=== PATIENT | male | born 1995 | race Caucasian/White ===

== ENCOUNTER 2025-03-30 17:00 | Emergency (ER) | payer OTHER, SELFPAY ==
[2025-03-30 17:12] VITALS: BP 129/63; PULSE 78; RESP 18; TEMP 36.8; O2SAT 100
--- NOTE | 2025-03-30 17:23 | ED_ITS ---
HPI - General Adult General Chief complaint: Dental/Oral Stated complaint: dental abcess Source: patient Mode of arrival: ambulatory Limitations: no limitations History of Present Illness HPI narrative: Patient presents for evaluation of left lower dental pain. Symptom onset yesterday. Pain is constant, throbbing, 8/10 severity. He took Tylenol for symptoms. He thinks he has a infection. No fever, trismus, or problems handling secretions. He does vape. Related Data Allergies Allergy/AdvReac Type Severity Reaction Status Date / Time No Known Allergies Allergy Mild Verified 03/30/25 17:11 Review of Systems Review of Systems: CONSTITUTIONAL: Denies fever, chills, or sweats. EYES: Denies visual changes, redness, or discharge. ENT: Reports left lower dental pain. Denies rhinorrhea, congestion, sore throat, or otalgia. CARDIOVASCULAR: Denies chest pain, palpitations, or edema. RESPIRATORY: Denies cough or dyspnea. GASTROINTESTINAL: Denies abdominal pain, nausea, vomiting, or diarrhea. GENITOURINARY: Denies dysuria or hematuria. SKIN: Denies rash or itching. MUSCULOSKELETAL: Denies back pain, joint pain, or myalgia. NEUROLOGIC: Denies headache, numbness, dizziness, or weakness. PSYCHIATRIC: Denies anxiety or depression. [facility] Past Medical History Medical History No pertinent past medical history Surgical History Surgical History No pertinent past surgical history Family History Family History Mother Family history non-contributory Social History Social History Smoking status: Current every day smoker Tobacco type: e-cigarettes/vaping Gender identity (if verbalized by the patient): Male Spiritual care concerns: No Exam Narrative: GENERAL: Well-appearing, well-nourished, and in no acute distress. HEAD: Normocephalic, atraumatic. EYES: PERRLA and EOMI. ENT: Nares clear, no rhinorrhea or epistaxis. Tooth #20 is fractured. There is no palpable area of fluctuance in the gumline however there is tenderness present adjacent to tooth #20. Mucous membranes moist. Oropharynx without tonsillar hypertrophy exudate or other lesions. Bilateral TMs pearly talley nonbulging NECK: Supple. No adenopathy or masses. No carotid bruits or JVD CHEST: Clear to auscultation. No respiratory distress. No wheezes rales or rhonchi HEART: Regular rate and rhythm. No murmur heard. Normal peripheral pulses. ABDOMEN: Soft, nontender, nondistended, normal active bowel sounds. EXTREMITIES: Normal range of motion. No edema. SKIN: Warm, dry, no rash. NEURO: No focal deficits. Alert and oriented x3. PSYCH: Normal mood and affect. Course Course Emergency Course: This is a 30-year-old male who presented for evaluation of left lower dental pain. He has a dental fracture in that area. Reports a history of dental infection and states that his current symptoms seem similar to that. I do not appreciate a drainable fluid collection. Will discharge with penicillin and ibuprofen. Advised on smoking cessation. Follow up with primary provider. Go to the ER for worsening symptoms. Patient in agreement with plan of care. Level of Care: Express Care Visit Vital Signs Vital signs: Vital Signs Temperature 36.8 C 03/30/25 17:12 Pulse Rate 78 03/30/25 17:12 Respiratory Rate 18 03/30/25 17:12 Blood Pressure 129/63 03/30/25 17:12 Pulse Oximetry 100 03/30/25 17:12 Oxygen Delivery Room Air 03/30/25 17:12 Temperature 36.8 C 03/30/25 17:12 Pulse Rate 78 03/30/25 17:12 Respiratory Rate 18 03/30/25 17:12 Blood Pressure 129/63 03/30/25 17:12 Pulse Oximetry 100 03/30/25 17:12 Oxygen Delivery Room Air 03/30/25 17:12 Medical Decision Making Vital Signs Vital Signs: Vital Signs Temperature 36.8 C 03/30/25 17:12 Pulse Rate 78 03/30/25 17:12 Respiratory Rate 18 03/30/25 17:12 Blood Pressure 129/63 03/30/25 17:12 Pulse Oximetry 100 03/30/25 17:12 Oxygen Delivery Room Air 03/30/25 17:12 Temperature 36.8 C 03/30/25 17:12 Pulse Rate 78 03/30/25 17:12 Respiratory Rate 18 03/30/25 17:12 Blood Pressure 129/63 03/30/25 17:12 Pulse Oximetry 100 03/30/25 17:12 Oxygen Delivery Room Air 03/30/25 17:12 Discharge Plan Discharge Clinical Impression: Fracture of tooth Patient Disposition: Home Condition: Stable Instructions: Antibiotic Form, Toothache (ED) Patient Language: Kiswahili Prescriptions: New penicillin V potassium 500 mg tablet 500 mg PO Q6H 10 Days Qty: 40 0RF ibuprofen 800 mg tablet 800 mg PO TID PRN (Reason: pain) Qty: 30 0RF Follow-up/Referrals: Angel Pradhan MD [Physician, Family Practice] Time of Disposition: 17:22
== END 2025-03-30 17:29 | disposition home or self-care (01) ==
PROVIDERS: Emergency Provider Nurse Practitioner
DX: S02.5XXA Fracture of tooth (traumatic), initial encounter for closed fracture (principal); F17.290 Nicotine dependence, other tobacco product, uncomplicated; X58.XXXA Exposure to other specified factors, initial encounter
CPT/HCPCS: 99203; G0463

== ENCOUNTER 2025-05-19 17:37 | Emergency (ER) | payer OTHER, SELFPAY ==
[2025-05-19 17:44] VITALS: BP 135/77; PULSE 66; RESP 20; TEMP 37.1; O2SAT 100
--- NOTE | 2025-05-19 17:57 | ED_ITS ---
HPI - Dental/Oral General Chief complaint: Dental/Oral Stated complaint: Tooth Pain Time Seen by Provider: 05/19/25 17:57 Source: patient Mode of arrival: ambulatory Limitations: no limitations History of Present Illness HPI Narrative: 30-year-old male presents with concern of for left lower dental pain for 2 days. Reports similar instances of infection in the past. Reports left jaw swelling. Denies fever problems swallowing MD Complaint: tooth pain Related Data Allergies Allergy/AdvReac Type Severity Reaction Status Date / Time No Known Allergies Allergy Mild Verified 05/19/25 17:44 Review of Systems Review of Systems: CONSTITUTIONAL: Denies malaise, chills, sweats, or fever. EYES: Denies visual changes ENT: Denies rhinorrhea, congestion, sinus pain, otalgia or sore throat. Reports left lower dental pain CARDIOVASCULAR: Denies chest pain, palpitations RESPIRATORY: Denies cough or dyspnea. SKIN: Denies rash or itching. MUSCULOSKELETAL: Denies myalgia. NEUROLOGIC: Denies numbness, weakness, or headache. All systems reviewed & are unremarkable except as noted in HPI and below PMFSH Past Medical History Medical History No pertinent past medical history Surgical History Surgical History No pertinent past surgical history Family History Family History Mother Family history non-contributory Social History Social History (Updated 03/30/25 @ 17:26 by Derik Flannery, [facility], [facility]) Smoking status: Current every day smoker Tobacco type: e-cigarettes/vaping Gender identity (if verbalized by the patient): Male Spiritual care concerns: No Comments At time of signature, agree with nursing past medical, surgical, social and family history. There is no relevant family history pertinent to the presenting complaint Exam Narrative: GENERAL: Well-appearing, well-nourished, and in no acute distress. HEAD: Normocephalic, atraumatic. EYES: PERRLA, sclera clear ENT: Nares clear, turbinates pink, no rhinorrhea or epistaxis. Mucous membranes moist. TM pearly talley with sharp light reflex bilaterally; no tragal tenderness. Oropharynx without erythema or lesions. Tonsils not enlarged and without exudate. Missing teeth, broken teeth, caries, mild left jaw swelling NECK: Supple. No lymphadenopathy. CHEST: No respiratory distress. Speaks in full sentences. HEART: Regular rate and rhythm. SKIN: Warm, dry, no visible rash. NEURO: Alert and oriented x3. PSYCH: Normal mood and affect Course Course Emergency Course: Patient is aware of diagnosis, understands and agrees to treatment plan. Anticipatory guidance given. Patient agrees to follow-up as directed and is aware of reasons to seek care at the emergency department. Portions of this record may have been created with voice recognition software Level of Care: [facility] Visit Vital Signs Vital signs: Vital Signs Temperature 98.8 F 05/19/25 17:44 Pulse Rate 66 05/19/25 17:44 Respiratory Rate 20 05/19/25 17:44 Blood Pressure 135/77 05/19/25 17:44 Pulse Oximetry 100 05/19/25 17:44 Oxygen Delivery Room Air 05/19/25 17:44 Temperature 98.8 F 05/19/25 17:44 Pulse Rate 66 05/19/25 17:44 Respiratory Rate 20 05/19/25 17:44 Blood Pressure 135/77 05/19/25 17:44 Pulse Oximetry 100 05/19/25 17:44 Oxygen Delivery Room Air 05/19/25 17:44 Reviewed. MDM - Dental/Oral MDM Narrative Medical decision making narrative: I evaluated [facility] in the [facility]. History is obtained from patient who is an independent historian and physical exam was performed.? Available medical records were reviewed. ? Exam findings and relevant testing show no acute concerns or changes; patient is non-toxic appearing and is in no distress. Patients pain and complaint coupled with physical findings are consistant with dentalgia. There are no focal signs of space occupying lesions that are compromising to the airway; no dysphagia, odynophagia, dysphonia, or dyspnea. No uvular deviation or soft palate edema. Patient is non-toxic appearing. The floor of the mouth is soft with no signs of Vito's Angina; no induration below mandible, no neck pain. Patient is without trismus or drooling and able to swallow secretions. Patient is felt appropriate for discharge home with dental follow up. ? Differential diagnosis and treatment plan were discussed with the patient. Patient agrees with discussion and after shared medical decision making agrees with plan of care. All questions were answered to the patient's satisfaction. Patient is appropriate for outpatient treatment and follow-up. Differential Diagnosis Differential diagnosis: Likely gingival abscess, dental caries, toothache, dental abscess, fracture of tooth and aphthous ulcer Critical Care Time Critical Care Time Critical Care Time: No Discharge Plan Discharge Clinical Impression: Dental abscess Patient Disposition: Home Condition: Stable Instructions: Dental Abscess (ED) Additional Instructions: Take antibiotic as directed Avoid temperature extremes May apply heat or ice to the face Gentle brushing and flossing Take 2 extra strength Tylenol, 4 ibuprofen, 80 mg of caffeine at same time. You can do this every 6 hours. Do not do this for more than 2 - 3 days. You can substitute 25 mg Benadryl at nighttime for caffeine to help you sleep. Do this for no more than 3 days. Follow-up with the dentist as soon as possible - see the list provided Patient Language: Spanish Prescriptions: New amoxicillin-pot clavulanate 875-125 mg tablet 1 tablet PO Q12H 10 Days Qty: 20 0RF Follow-up/Referrals: PHYSICIAN,HOME SERVICE DIRECTOR [Primary Care Provider, Internal Medicine] Time of Disposition: 18:01
== END 2025-05-19 18:06 | disposition home or self-care (01) ==
PROVIDERS: Emergency Provider Nurse Practitioner
DX: K04.7 Periapical abscess without sinus (principal); F17.290 Nicotine dependence, other tobacco product, uncomplicated
CPT/HCPCS: 99213; G0463

== ENCOUNTER 2025-06-21 16:32 | Emergency (ER) | payer OTHER, SELFPAY ==
--- OUTSIDE RECORDS SUMMARY | 2025-06-21 16:33 | XMS_ITS | Clinical Summary ---
Author Organization [facility] Address [address] [place] [address] Phone Care Team Providers Care Microsoft Exchange Architect Name Role Phone Manoj Bey MD Primary Care Provider [phone] Allergies No known active allergies Medications No known medications Immunizations Immunization Administration Dates Next Due Covid-19, Mrna, Lnp-s, Pf, 3 0 Mcg/0.3 Ml Dose (Skip Hop) 06/23/2021 DT Vaccine 09/21/1997, 7,1996,04/24 DTAP VACCINE 11/08/2000 Hepatitis A Vaccine, Pediatric/adolescent, 2 Dose Schedule 03/06/2010,01/17/2000,07/04/1999 Hepatitis B Vaccine, Pediatric/adolescent 1996,1996,1996 Hib Vaccine,unspecified Formulation 10/1997,1996,1996,04/24 Influenza Vaccine, Quadrivalent, PF 05/08/2013 MMR Vaccine 11/08/2000,06/28/1997 Meningococcal Vaccine 03/06/2010 OPV 11/08/2000, 8,1996,07/14,1996 TDAP Vaccine 03/06/2010 Varicella Vaccine Live 03/06/2010,02/23/1997 Family History Medical History Relation Name Comments No Known Problems Brother Cancer Father Prostate Cancer Father No Known Problems Maternal Grandfather No Known Problems Maternal Grandmother No Known Problems Mother Cancer Paternal Grandfather No Known Problems Paternal Grandmother Relation Name Status Comments Brother Alive Father Maternal Grandfather Alive Maternal Grandmother Alive Mother Alive Paternal Grandfather Paternal Grandmother Social History Tobacco Use Types Packs/Day Years Used Date Smoking Tobacco: Former Cigarettes 8 2 013 - 2020 Smokeless Tobacco: Never Tobacco Cessation:Counseling Given: No Alcohol Use Standard Drinks/Week Comments Not Currently 0 (1 standard drink = 0.6 oz pur e alcohol) PHQ-2 Answer Date Recorded Total Score - Questions 1-9 14 02/22 Sexually Active Control Partners Comments Yes Female Sex and Gender Information Value Date Recorded Sex Assigned at Not on file Legal Sex Male 3:03 PM CDT Gender Identity Not on file Sexual Orientation Not on file Last Filed Vital Signs Vital Sign Reading Time Taken Comments Blood Pressure 118/62 03/11/2023 2:15 PM CDT Pulse 76 03/11/2023 2:15 PM CDT Temperature 36.6 C (97.9 F) 03/11/2023 2:15 PM CDT Respiratory Rate 16 03/11/2023 2:15 PM CDT Oxygen Saturation 98% 03/11/2023 2:15 PM CDT Inhaled Oxygen Concentration - - Weight 85.5 kg (188 lb 8 oz) 03/11/2023 2:15 PM CDT Height 193 cm (6' 4) 03/11/2023 2:15 PM CDT Body Mass Index 22.94 03/11/2023 2:15 PM CDT Plan of Treatment Health Maintenance Due Date Last Done Comments DTaP/Tdap/Td Immunization (7 - Td or Tdap) 03/06/2020 03/06/2010, 11/08/2000, 09/21/1997, Additional history exists Human Papillomavirus (HPV) Immunization (1 - 3-dose SCDM series) 02/21/2023 Influenza Immunization (#1) 2025 05/08/2013 SARS-COV-2 Immunization ( season) 2025 06/23/2021 Respiratory Syncytial Virus (RSV) Immunization (Adult) (1 - 1-dose 75+ series) 02/21/2071 Hepatitis B Immunization Completed 997, 1996, 1996 Meningococcal Immunization (ACWY) Aged Out 03/06/2010 No longer eligible based on patient's age to complete this topic Hepatitis C Virus (HCV) Screening Completed 03/11/2023 Pneumococcal Immunization Combined Aged Out No longer eligible based on patient's age to complete this topic Rotavirus Immunization Aged Out No lo nger eligible based on patient's age to complete this topic Procedures Procedure Name Priority Date/Time Associated Diagnosis Comments HEPATITIS C ANTIBODY Routine 03/11/2023 2:45 PM CDT Need for hepatitis C screening test from Last 3 Months or Most Recently Relevant to Health Maintenance Results * HEPATITIS C ANTIBODY (03/11/2023 2:45 PM CDT) hepatitis C antibody 0.37 <1 S/[facility] [id number] 03/12/2023 12:42 AM CDT [facility] Comment: Signal/Cutoff ratio < 0.79 is Nondetected Signal/Cutoff ratio 0.80-0.99 is Grayzone Signal/Cutoff ratio > 0.99 is Detected Supplemental assays are recommended if signal/cutoff ratio is >/=1.00. Signal/cutoff ratio result >/= 5.00 is 97% predictive of positivity for recombinant immunoblot assay (RIBA) and will be reported to the [place] [facility] Public [facility] as required. Blood Venipuncture / Unknown 03/11/2023 2:45 PM CDT 03/11/2023 2:45 PM CDT us Manoj Bey MD CHEMISTRY ORDERABLES Final Re sult [facility] [address] [place] [address], from Last 3 Months or Most Recently Relevant to Health Maintenance Care Teams Microsoft Exchange Architect Relationship Specialty Start Date End Date Manoj Bey MD #[address] [address] PCP - General Family Medicine 03/11/23
[2025-06-21 16:42] VITALS: BP 132/68; PULSE 69; RESP 16; TEMP 36.9; O2SAT 100
--- NOTE | 2025-06-21 17:11 | ED.DENTAL ---
HPI - Dental/Oral General Chief complaint: Dental/Oral Stated complaint: Toothache Time Seen by Provider: 06/21/25 17:08 Source: patient, RN notes reviewed and old records reviewed Mode of arrival: ambulatory Limitations: no limitations History of Present Illness HPI Narrative: 30 year old male presents to express care with complaints of pain to the left lower dental area where tooth is broken off with redness of gum around broken off tooth. Patient reports that he is awaiting dental appointment in July at [facility]. Patient reports that he has had dental pain and swelling to #19 tooth for past 4-5 days has been treated with antibiotics for same tooth past 3 months. Patient has been taking Tylenol and Ibuprofen for his pain. no trismus noted or any difficulty with his swallowing, does have minimal left facial swelling.. MD Complaint: tooth pain Location: Tooth # (#19) Onset (ago): day(s) (4-5 days) Severity scale (1-10): 7 Treatment prior to arrival: oral analgesic (Ibuprofen and Tylenol) Related Data Allergies Allergy/AdvReac Type Severity Reaction Status Date / Time No Known Allergies Allergy Mild Verified 06/21/25 16:37 Review of Systems Review of Systems: CONSTITUTIONAL: Denies fever, chills, or sweats. ENT: Denies rhinorrhea, congestion, sore throat, or otalgia. Reports dental pain to left lower dental area where tooth is broken off to gum,with minimal swelling to gum and face. #19 CARDIOVASCULAR: Denies chest pain, palpitations, or edema. RESPIRATORY: Denies cough or dyspnea. SKIN: Denies rash or itching. MUSCULOSKELETAL: Denies myalgia. NEUROLOGIC: Denies headache All systems reviewed & are unremarkable except as noted in HPI and below PMFSH Past Medical History Medical History (Updated 06/23/25 @ 07:54 by Noemi Pierce APRN) History of dental problems Surgical History Surgical History No pertinent past surgical history Family History Family History Mother Family history non-contributory Social History Social History (Updated 06/23/25 @ 07:55 by Noemi Pierce APRN) Smoking status: Current every day smoker Tobacco type: e-cigarettes/vaping Alcohol intake: current Alcohol use details: social Substance use type: marijuana Last use: occasionally Living arrangements: with family Gender identity (if verbalized by the patient): Male Spiritual care concerns: No Comments At time of signature, agree with nursing past medical, surgical, social and family history. There is no relevant family history pertinent to the presenting complaint Exam Narrative: GENERAL: Well-appearing, well-nourished, and in no acute distress. HEAD: Normocephalic, atraumatic. EYES: PERRLA and EOMI. ENT: Nares clear, no rhinorrhea or epistaxis. Mucous membranes moist. Dental pain to #19 tooth which is broken off to gum has other noted cavities, redness to gum around broken off tooth with minimal left sided facial swelling no trismus or any Vito angina noted. has dental appointment in July. NECK: Supple. no lymphadenopathy CHEST: Clear to auscultation. No respiratory distress.SAO2 100% on room air HEART: Regular rate and rhythm. No murmur heard. Normal peripheral pulses. SKIN: Warm, dry, no rash. NEURO: No focal deficits. Alert and oriented x3. Course Course Level of Care: Express Care Visit Vital Signs Vital signs: Vital Signs Temperature 36.9 C 06/21/25 16:42 Pulse Rate 69 06/21/25 16:42 Respiratory Rate 16 06/21/25 16:42 Blood Pressure 132/68 06/21/25 16:42 Pulse Oximetry 100 06/21/25 16:42 Oxygen Delivery Room Air 06/21/25 16:42 Temperature 36.9 C 06/21/25 16:42 Pulse Rate 69 06/21/25 16:42 Respiratory Rate 16 06/21/25 16:42 Blood Pressure 132/68 06/21/25 16:42 Pulse Oximetry 100 06/21/25 16:42 Oxygen Delivery Room Air 06/21/25 16:42 reviewed MDM MDM Narrative Medical decision making narrative: Patient presents to clinic with 4-5 day history of dental pain to #19 tooth which is broken off to gum with redness of gum and minimal facial swelling. no trismus or Vito angina. Patient has dental appointment in July at [facility] for repair or extraction. RX Clindamycin and Peridex mouthwash sent to patient's pharmacy of choice. Anticipatory guidance with reasons to seek care in ED reviewed with patient with understanding voiced. Differential Diagnosis Differential Diagnosis: Differential diagnostic considerations for dental issues include gingival abscess, dental caries, toothache, dental abscess, fracture of tooth, aphthous ulcer, TMJ. Critical Care Time Critical Care Time Critical Care Time: No Discharge Plan Discharge Clinical Impression: Dental abscess Patient Disposition: Home Condition: Stable Instructions: Antibiotic Form, Toothache (ED) Additional Instructions: Avoid temperature extremes May apply heat or ice to the face Gentle brushing and flossing Antibiotic as directed Tylenol for lesser pain Use ibuprofen regularly Follow-up with the dentist as soon as possible--see the list provided If your symptoms persist, change or worsen significantly before you can contact your personal physician then please, without delay, go to the emergency department for further evaluation. Follow-up with PCP in 7-10 days or sooner if needed Follow up with PCP soon in regards to your blood pressure which is elevated above threshold for referral. Blood pressure above 120/80 may indicate pre-hypertension. 132/68 Patient Language: Yakut Prescriptions: New clindamycin HCl [Cleocin HCl] 300 mg capsule 300 mg PO Q8H Qty: 30 0RF chlorhexidine gluconate [Peridex] 0.12 % mouthwash 15 ml mucous membrane BID Qty: 473 0RF Follow-up/Referrals: PHYSICIAN,ARMORED MACHINE OPERATOR [Primary Care Provider, Internal Medicine] Stand Alone Forms: Work/School Release IP Time of Disposition: 17:17 Quality Blackey Coma Scale Eyes: Open Verbal: Oriented and Alert Motor: Follows Commands Lali Coma Total Score: 15
== END 2025-06-21 17:20 | disposition home or self-care (01) ==
PROVIDERS: Emergency Provider Registered Nurse
DX: K04.7 Periapical abscess without sinus (principal)
CPT/HCPCS: 99213; G0463